=== PATIENT | female | born 1965 | race Caucasian/White ===

== ENCOUNTER 2016-06-21 10:28 | Emergency (ER) | payer MEDICARE, MEDICAID ==
[~2016-06-21] VITALS: Ht 170.2 cm; Wt 89.5 kg
[~2016-06-21 10:28] MED LIST: ARIP15TA2 PO; CEPH-512 PO; DULO60CA42 PO; FURO40TA4 PO; GABA-502 PO; GABA600T2 PO; LORA1TAB PO; MULT-666 PO; ONDA-54 PO; OXYC-474 PO; PROC10TA PO; SPIR50TA2 PO; WARF5TAB7 PO; ZLP5T PO; [UNRECOGNIZED DRUG - CODE] IJ
[2016-06-21 10:35] VITALS: BP 124/75; PULSE 90; RESP 16; O2SAT 100
--- NOTE | 2016-06-21 10:45 | ED.REPORT ---
HPI-General Illness Date of Service Jun 21, 2016 ED Provider: Mike Shah MD Pt is a 51 year old female with a history of pancreatic cancer with metastatic disease to her liver who presents to the ED with concerns for LE swelling and pain in s/o known DVTs for which she is on coumadin. She reports that she has had previous DVTs in the past, and has been on Coumadin since March. She reports that her bilateral thighs are tenders and swollen. Pt states that she is concerned because her lower extremity swelling has been travelling upwards, and has been becoming increasingly tender. She reports that she has been short of breath, especially with exertion, although she reports that this has been consistent. Pt reports that her PCP has not been treating her symptoms due to her therapeutic INR. She denies any chest pain, headache, or any other significant past medication history. She reports that she is currently being treated with chemotherapy, and has a consult with a vascular surgeon on 2016 to address her DVTs. Her primary concern today seems to be lower extremity pain and she reports that she has been prescribed compression stockings but has not been able to afford them. Nursing Notes Stated Complaint: POSSIBLE BLOOD CLOTS Chief Complaint: General Complaint Nursing Notes Reviewed: Yes Allergies: Coded Allergies: No Known Allergies (Unverified Allergy, Unknown, 02/05/16) Scheduled Aripiprazole (Abilify) 15 Mg Tablet 15 MG PO HS Cephalexin (Keflex) 500 Mg Capsule 500 MG PO QID Duloxetine (Cymbalta) 60 Mg Capsule.dr 60 MG PO BID Furosemide (Furosemide) 40 Mg Tablet 40 MG PO BID Gabapentin (Gabapentin) 300 Mg Capsule 300 MG PO BID Gabapentin (Gabapentin) 600 Mg Tablet 600 MG PO BID Multivitamin (Once Daily) 1 Each Tablet 1 EACH PO DAILY Sargramostim (Leukine) 250 Mcg Vial 250 MCG IJ WEEKLY Fridays Spironolactone (Spironolactone) 50 Mg Tablet 50 MG PO BID Warfarin Sodium (Warfarin Sodium) 5 Mg Tablet 5 MG PO DAILY Scheduled PRN Lorazepam (Lorazepam) 1 Mg Tablet 1 MG PO Q6H PRN PRN For Anxiety Ondansetron (Ondansetron) 8 Mg Tablet 8 MG PO Q8H PRN PRN For Nausea Oxycodone (Roxicodone) 5 Mg Tablet 5 MG PO Q4H PRN PRN For Pain Prochlorperazine Maleate (Prochlorperazine) 10 Mg Tablet 10 MG PO Q6H PRN PRN For Nausea Zolpidem (Ambien) 5 Mg Tablet 5 MG PO HS PRN PRN For Insomnia oxyCODONE-Acetaminophen 5-325 mg (oxyCODONE-Acetaminophen 5-325 mg) 1 Each Tablet 1 TAB PO Q6H PRN PRN For Pain General Time Seen by MD: 10:44 Chief Complaint Other (Possible DVT) Hx Obtained From: Patient Arrived By: Walk-in Sudden in Onset?: Yes Onset Occurred: More than a week ago... Symptom Duration: Since onset Location: : Leg left: Leg right Quality: Painful Severity: Current: Mild Severity: Maximum: Moderate Similar Sx Previous: Yes Past Medical History Past Medical History Bipolar disorder Seizure disorder DVT bilaterally Metastatic pancreaticobiliary adenocarcenoma Reports: Depression Past Surgical History Reports: Portocath Smoking History Former Smoker Social History Drug Use: THC Other Social History: Ambulatory Status Independent Review of Systems Full Review of Systems Constitutional: Denies: Chills, Fever, Malaise, Weakness - generalized Cardiovascular: Denies: Chest pain GI: Denies: Abdominal pain, Constipation, Nausea, Vomiting Female: Denies: Dysuria, Flank pain, Urinary frequency, Urinary urgency Musculoskeletal: Reports: Extremity pain, Extremity swelling, Denies: Neck pain Skin: Denies Diaphoresis Neurologic: Denies: Change LOC, Dizziness, Headache, Syncope, Weakness Complete sys rev & neg: except as marked. Physical Exam Vital Signs Vital Signs Date Time Temp Pulse Resp B/P Pulse Ox O2 Delivery O2 Flow Rate FiO2 06/21/16 14:48 36.7 85 16 119/66 96 Room Air 06/21/16 10:35 37.0 90 16 124/75 100 Room Air Initial VS: Reviewed General/Constitutional: Well-developed, Well-nourished Head / Eyes: Atraumatic, Normocephalic, PERRL ENT: Mucous membranes moist, Conjunctiva normal, No scleral icterus Neck: Supple, Non-tender, Full range of motion Respiratory: Breath sounds normal, Clear to auscultation, No respiratory distress Cardiovascular: Regular rate & rhythm, Heart sounds normal, Intact distal pulses Abdomen / GI: Soft, Non-tender, No guarding, No rebound, No distention Skin: Warm, Dry, No cyanosis Neurologic: Alert, Oriented, Nonfocal Psychiatric: Mood/affect normal, Behavior normal, Normal thought content Cardiovascular: Heart rate NL, Regular rhythm, Heart sounds NL, No gallop, No murmurs, No rubs Pitting edema in the bilateral lower extremities, left greater than right, extending just above the knees Skin is in tact Interpretation & Diagnostics Lab Results Interpretation Result Diagram: 06/21/16 1225 06/21/16 1225 Test 06/21/16 12:25 White Blood Count 14.5th/mm3 (3.8-10.1) Red Blood Count 2.62mil/mm3 (3.90-5.20) Hemoglobin 9.0g/dL (12.0-15.6) Hematocrit 28.7% (35.0-46.0) Mean Corpuscular Volume 109.5fL (81-100) Mean Corpuscular Hemoglobin 34.4pg (27.0-35.0) Mean Corpuscular Hemoglobin Concent 31.4% (32.0-37.0) Red Cell Distribution Width 21.3% (12.3-15.4) Platelet Count 267bil/L (150-400) Neutrophils (%) (Auto) 54.6% (40-74) Lymphocytes (%) (Auto) 18.0% (14-46) Monocytes (%) (Auto) 24.1% (4-12) Eosinophils (%) (Auto) 1.5% (0-5) Basophils (%) (Auto) 0.3% (0-3) Prothrombin Time 19.9sec (8.1-12.5) Prothromb Time International Ratio 1.84ratio Sodium Level 135mEq/L (134-144) Potassium Level 3.7mEq/L (3.5-5.2) Chloride Level 99mEq/L (97-108) Carbon Dioxide Level 25mmol/L (18-29) Blood Urea Nitrogen 10mg/dL (6-24) Creatinine 0.45mg/dL (0.57-1.00) Estimat Glomerular Filtration Rate 210mL/min (>59) Glucose Level 103mg/dL (60-99) Calcium Level 8.2mg/dL (8.5-10.1) Total Bilirubin 0.2mg/dL (0.0-1.2) Aspartate Amino Transf (AST/SGOT) 13U/L (0-50) Alanine Aminotransferase (ALT/SGPT) 13U/L (0-32) Alkaline Phosphatase 71U/L (25-150) Pro-B-Type Natriuretic Peptide 222.6pg/mL (0-249) Total Protein 5.4g/dL (6.4-8.4) Albumin 2.8g/dL (3.4-5.0) X-Ray Chest Interpretation Chest Xray Interpretation: IMPRESSION: No acute cardiopulmonary disease process. Dictated by: Anne-Marie Lawton MD, PhD on 06/21/2016 at 12:08 Interpretation / Wet Read by: Interpret - Radiologist Re-Eval/Medical Decision Med Decision/Clinical Course Pt is a 51 year old female with a history of pancreatic cancer with metastatic disease to her liver who presents to the ED with concerns for LE swelling and pain in s/o known DVTs for which she is on coumadin. Upon arrival she appears somewhat uncomfortable to his hemodynamic stable and in no apparent distress. She is without tachycardia, tachypnea or respiratory distress. She has good oxygen saturation on room air. EKG was obtained as above. CXR: Obtained, reviewed and interpreted by myself shows no evidence of acute infiltrates, effusions or pneumothorax. Cardiac and mediastinal silhouette normal. No bony or soft tissue abnormalities. Lab for studies notable as below Hematocrit: 28.7, stable Leukocytosis: 14.5 Stable renal function Hypoalbuminemia, near reg baseline, slightly worsened No significant electrolyte abnormalities UA: unremarkable I considered pulmonary embolism in this patient however she reports that her generalized fatigue and shortness of breath has been very gradual in onset and is not acutely changed. She reports that she had CT angiography of her chest approximately one month ago which demonstrated no pulmonary embolism and that her shortness of breath has not changed since this time. Moreover, she is already on Coumadin in the setting of known DVTs. I do not feel that CT angiography would be diagnostically or therapeutically relevant at this time. Of note she is hypoalbuminemic and this is slightly worsened from her regular baseline, this may be a contributor to her lower extremity edema. She is also anemic though this is at her regular baseline and she has no history suggestive of acute blood loss. I had a long discussion with the patient regarding the utility of repeat lower extremity ultrasound and additional chest imaging. We opted not to proceed with this. Her pain was treated with hydromorphone. She is currently on a fairly low dose of oxycodone and requests more oxycodone. I informed her that she may take up to 5-10 mg every 6 hours and I prescribed additional oxycodone. She has an upcoming appointment with a vascular surgeon to further discuss treatment of her significant lower extremity DVTs. She will follow-up at this time. She does not desire admission. Follow-up and return precautions were given detail she is discharged in good condition. She is advised to elevate her lower extremities. Her lower extremities were wrapped with Olaf bandages to apply external compression and she has been unable to afford compression stockings. She does already have a prescription for compression stockings. Source of Hx: Old records Time of Eval: 14:33 Re-Evaluation/Progress Note: Pt is rechecked and informed of her labs and imaging results and the plan to discharge her at this time. She understands and agrees, all questions are addressed. 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 He was seen today because you have had leg swelling. Her INR was slightly low at 1.84 and this should be rechecked in the next couple of days. Continue to take your Coumadin. Please elevate your legs and apply Olaf bandages. You are able to afford it we will recommend getting compression stockings. You will be discharged with a prescription for pain medication. He may take 5- 10 mg of oxycodone every 6 hours. Do not take more narcotic pain medication and is prescribed. You should follow-up with your primary doctor in the next week. You should return to the ED immediately if you develop worse pain, fevers, vomiting, cough, shortness of breath, chest pain, lightheadedness, weakness or any other concerning signs or symptoms. Thank you for letting us partake in your care today. Narcotic Pain Medicine You have been prescribed a narcotic for pain relief. These drugs are usually combined with acetaminophen (Tylenol#3, Percocet, Darvocet, Anexsia, Vicodin) or aspirin (Empirin#3, Percodan, Synalogs-DC) for increased effect. Narcotics act on the central nervous system to reduce pain; they also impair mental alertness and physical abilities. We advise you not to drink alcohol, drive a car, or operate dangerous equipment when you are taking theses drugs. You can lessen stomach irritation from your medicine by taking it with meals or a full glass of water. Common side effects of narcotics are: Nausea and vomiting, heartburn, consitpation, dizziness, sleepiness, and mood changes. If you have bothersome side effects or symptoms of an allergic reaction (itching, hives, rash), stop taking your medicine and call your doctor or the emergency room right away. Please keep your narcotic medicine well out of the reach of children. Referrals: Jonathan Lockhart MD (PCP) [place] Attestation Portions of this note were transcribed by Vicky Husain. I, Dr. Shah personally performed the history, physical exam and medical decision-making; I reviewed and confirmed the accuracy of the information in the transcribed note. Signed by: Janice Crocker, 06/21/2016 14:34 copies to: Jonathan Lockhart MD, Beck O MD Jun 21, 2016 10:45 HAILEY HUSAIN Jun 21, 2016 11:21
[2016-06-21] MEDS ORDERED: HYDROmorphone 1 mg/mL Inj IVPUSH ONE (11:25)
--- NOTE | 2016-06-21 12:10 | DRSVH ---
PROCEDURE: X-RAY CHEST, TWO VIEWS ([id number]) INDICATIONS: sob TECHNIQUE: 2 views of the chest were acquired. COMPARISON: None. FINDINGS: Surgical changes and devices: Right chest wall Port-A-Cath. Lungs and pleura: No pleural effusions or pneumothorax. Lungs are clear. Mediastinum: Mediastinal contours are normal. Heart size is normal. Bones and chest wall: No suspicious bony abnormalities. Soft tissues appear unremarkable. IMPRESSION: No acute cardiopulmonary disease process. Dictated by: Anne-Marie Lawton MD, PhD on 06/21/2016 at 12:08 Approved by: Anne-Marie Lawton MD, PhD on 06/21/2016 at 12:08
[2016-06-21] MEDS ORDERED: 0.9% Sodium Chloride 100 ML ONE (12:21)
[2016-06-21 13:12] LABS: BASOPHILS % (AUTO) 0.3 % (0-3); EOSINOPHILS % (AUTO) 1.5 % (0-5); MONOCYTES % (AUTO) 24.1 % (4-12); Mean Corpuscular Hemoglobin 34.4 pg (27.0-35.0); Mean Corpuscular Volume 109.5 fL (81-100); NEUTROPHILS % (AUTO) 54.6 % (40-74); Platelet Count 267 bil/L (150-400)
[2016-06-21 13:45] LABS: INR 1.84 ratio
[2016-06-21] MEDS ORDERED: OXYC1TAB24 PO (14:35)
[2016-06-21 14:48] VITALS: BP 119/66; PULSE 85; RESP 16; O2SAT 96
[2016-06-21 15:01] VITALS: BP 119/66; PULSE 85; RESP 16; O2SAT 96
== END 2016-06-21 14:36 | disposition home or self-care (01) ==
LOC: SED 10:28
DX: R60.0 Localized edema (principal); C25.9 Malignant neoplasm of pancreas, unspecified; I82.5Y3 Chronic embolism and thrombosis of unspecified deep veins of proximal lower extremity, bilateral; R79.1 Abnormal coagulation profile; D72.829 Elevated white blood cell count, unspecified; M79.604 Pain in right leg; R06.02 Shortness of breath; Z79.01 Long term (current) use of anticoagulants; Z87.891 Personal history of nicotine dependence
CPT/HCPCS: 71020; 80053; 83880; 85025; 85610; 96361; 96374; 99284; J1170